=== PATIENT | female | born 1955 | race Asian ===

== ENCOUNTER 2017-10-15 05:04 | Emergency (ER) | END 2017-10-15 07:03 | disposition home or self-care (01) ==

== ENCOUNTER 2017-10-18 08:45 | Emergency (ER) | END 2017-10-18 11:24 | disposition home or self-care (01) ==

== ENCOUNTER 2017-11-01 20:16 | Emergency (ER) | END 2017-11-01 23:40 | disposition home or self-care (01) ==

== ENCOUNTER 2017-12-07 22:10 | Emergency (ER) | END 2017-12-08 01:52 | disposition left against medical advice (07) ==

== ENCOUNTER 2017-12-14 17:12 | Emergency (ER) | END 2017-12-14 20:10 | disposition home or self-care (01) ==

== ENCOUNTER 2018-09-30 15:09 | Emergency (ER) | payer MEDICAID ==
[~2018-09-30] VITALS: Wt 78.4 kg
[~2018-09-30 15:09] MED LIST: BEN25 PO; BEN50 PO; CEPH-443 PO; FAMO-96 PO; FEXO180T61 PO; HC30CR25 TOP; PRED20TA PO; TRIA15CR55 TOP
[2018-09-30 15:17] VITALS: BP 150/71; PULSE 71; RESP 19
[2018-09-30] MEDS ORDERED: LORA-441 PO (16:03)
--- NOTE | 2018-09-30 18:30 | ERD ---
ER Documentation Chief Complaint Chief Complaint bib self, cc: headache, here for lorazapam rx refill, hx of anxiety HPI 63-year-old female presents for palpitation and headache times 1 day. Patient does have history of anxiety and atrial fibrillation for which she takes ativan and metoprolol. She was able to take her medications last night with relief of symptoms. Patient states that she currently out of the Ativan and would like a refill. No other complaints. ROS All systems reviewed and are negative except as per history of present illness. Medications Home Meds Active Scripts Lorazepam* (Ativan*) 0.5 Mg Tablet, 0.5 MG PO Q8H PRN for ANXIETY, #10 TAB Prov:TAVON CAMPOS DO 09/30/18 Triamcinolone Acetonide (Triamcinolone Acetonide) 0.1% - 15 Gm Cream.gm., 1 APPLIC TOP QID for 10 Days, #1 TUB 60 g okay Prov:ASHWIN GUILLAUME MD 12/14/17 Prednisone* (Prednisone*) 20 Mg Tab, 40 MG PO DAILY for 5 Days, TAB Prov:ASHWIN GUILLAUME MD 12/14/17 Fexofenadine Hcl* (Fay*) 180 Mg Tablet, 180 MG PO DAILY, #30 TAB Prov:ASHWIN GUILLAUME MD 12/14/17 Famotidine* (Pepcid*) 20 Mg Tablet, 20 MG PO BID for 4 Days, #20 TAB Prov:LAINE TOLLIVER PA-C 11/01/17 Hydrocortisone* Topical (Hydrocortisone* Topical) 2.5%-28.3 Gm Cream..g., 1 APPLIC TOP BID for 7 Days, #1 TUB Prov:LAINE TOLLIVER PA-C 11/01/17 Diphenhydramine Hcl* (Benadryl*) 50 Mg Cap, 50 MG PO Q6H PRN for ITCHING/RASH, #30 CAP Prov:LAINE TOLLIVER PA-C 11/01/17 Prednisone* (Prednisone*) 20 Mg Tab, 40 MG PO DAILY for 4 Days, TAB Prov:LAINE TOLLIVER PA-C 11/01/17 Prednisone* (Prednisone*) 20 Mg Tab, 40 MG PO DAILY for 4 Days, TAB Prov:LAINE TOLLIVER PA-C 11/01/17 Cephalexin* (Keflex*) 500 Mg Capsule, 500 MG PO QID for 7 Days, CAP Prov:MARICRUZ HEREDIA PA-C 10/18/17 Hydrocortisone* Topical (Hydrocortisone* Topical) 2.5%-28.3 Gm Cream..g., 1 APPLIC TOP BID, #1 TUB Prov:MARICRUZ HEREDIA PA-C 10/18/17 Diphenhydramine Hcl* (Benadryl*) 50 Mg Cap, 50 MG PO Q6 PRN for ITCHING, #30 CAP Prov:MARICRUZ HEREDIA PA-C 10/18/17 Famotidine* (Pepcid*) 20 Mg Tablet, 20 MG PO BID for 4 Days, TAB Prov:MARICRUZ HEREDIA PA-C 10/18/17 Famotidine* (Pepcid*) 20 Mg Tablet, 20 MG PO BID for 7 Days, TAB Prov:LUNA العلي PA-C 10/15/17 Prednisone* (Prednisone*) 20 Mg Tab, 40 MG PO DAILY for 4 Days, TAB Prov:LUNA العلي PA-C 10/15/17 Diphenhydramine Hcl* (Benadryl*) 25 Mg Cap, 25 MG PO Q6, #30 CAP Prov:LUNA العلي PA-C 10/15/17 Allergies Allergies: Coded Allergies: Sulfa (Sulfonamide Antibiotics) (Verified Allergy, Severe, rash, 10/18/17) iodine (Verified Allergy, Severe, rash, 10/18/17) PMhx/Soc History of Surgery: No Anesthesia Reaction: No Hx Neurological Disorder: No Hx Respiratory Disorders: No Hx Cardiac Disorders: Yes (HTN, HLD) Hx Psychiatric Problems: Yes (anxiety) Hx Miscellaneous Medical Probl: Yes (Thyroid) Hx Alcohol Use: No Hx Substance Use: No Hx Tobacco Use: Yes Smoking Status: Never smoker Physical Exam Vitals Vital Signs Date Temp Pulse Resp B/P (MAP) Pulse Ox O2 O2 Flow FiO2 Time Delivery Rate 09/30/18 98.1 71 19 150/71 100 15:17 (97) Physical Exam Const: No acute distress Head: Atraumatic Eyes: Normal Conjunctiva ENT: Normal External Ears, Nose and Mouth. Neck: Full range of motion. No meningismus. Resp: Clear to auscultation bilaterally Cardio: Irregular rate, no murmurs Abd: Soft, non tender, non distended. Normal bowel sounds Skin: No petechiae or rashes Back: No midline or flank tenderness Ext: No cyanosis, or edema Neur: Awake and alert Psych: Normal Mood and Affect Procedures/MDM Medical Decision Making: Differential diagnosis includes but not limited to arrhythmia, anxiety, electrolyte disorder Patient appeared well on physical exam. Vital signs reviewed by me showed normal pulse with mildly elevated blood pressure The heart rate was irregular given patient's history of atrial fibrillation. However the heart rate was controlled. There is possible the palpitations from arrhythmia possibly due to the patient's age fibrillation. There is also possibility that the patient may have had anxiety attack. Prescription(s): Patient given prescription for Ativan low-dose short course. Patient advised that she would need to follow with cardiology. Patient advised to follow up with PCP in 1-2 days. Patient advised to return to ED for new or worsening symptoms. Patient stable on discharge from the ED. Disclaimer: Inadvertent spelling and grammatical errors are likely due to EHR/dictation software use and do not reflect on the overall quality of patient care. Also, please note that the electronic time recorded on this note does not necessarily reflect the actual time of the patient encounter. Departure Diagnosis: Primary Impression: Palpitation Additional Impression: Anxiety Condition: Fair Patient Instructions: Your Body's Response to Anxiety, Palpitations Referrals: [facility], [facility] YOU HAVE RECEIVED A MEDICAL SCREENING EXAM AND THE RESULTS INDICATE THAT YOU DO NOT HAVE A CONDITION THAT REQUIRES URGENT TREATMENT IN THE EMERGENCY DEPARTMENT. FURTHER EVALUATION AND TREATMENT OF YOUR CONDITION CAN WAIT UNTIL YOU ARE SEEN IN YOUR DOCTORS OFFICE WITHIN THE NEXT 1-2 DAYS. IT IS YOUR RESPONSIBILITY TO MAKE AN APPOINTMENT FOR FOLOW-UP CARE. IF YOU HAVE A PRIMARY DOCTOR --you should call your primary doctor and schedule an appointment IF YOU DO NOT HAVE A PRIMARY DOCTOR YOU CAN CALL OUR PHYSICIAN REFERRAL HOTLINE AT IF YOU CAN NOT AFFORD TO SEE A PHYSICIAN YOU CAN CHOSE FROM THE FOLLOWING [facility], [facility] [address] [facility]. [facility] [address] [facility] [address] [facility]. [facility] [address] [facility]. [facility] [address] [facility] [address] Additional Instructions: Call your primary care doctor TOMORROW for an appointment during the next 1-2 days.See the doctor sooner or return here if your condition worsens before your appointment time. TAVON CAMPOS DO Sep 30, 2018 18:30
== END 2018-09-30 16:36 | disposition home or self-care (01) ==
LOC: FTE 15:09
DX: F41.9 Anxiety disorder, unspecified (principal); I10 Essential (primary) hypertension
CPT/HCPCS: 99283

== ENCOUNTER 2018-11-02 11:39 | Emergency (ER) | payer MEDICAID ==
[~2018-11-02] VITALS: Wt 81.0 kg
[~2018-11-02 11:39] MED LIST changes: +LORA-441 PO
[2018-11-02 11:56] VITALS: BP 125/71; PULSE 67; RESP 20
[2018-11-02] MEDS ORDERED: DEXAMETHASONE 10 MG/ML 1 ML INJ IM ONE (13:30)
[2018-11-02] MEDS ORDERED: ELIM TOP (13:32)
[2018-11-02] MEDS ORDERED: PRED20TA PO (13:32)
[2018-11-02] MEDS ORDERED: HYDR-3029 PO (13:32)
--- NOTE | 2018-11-02 13:36 | ERD ---
ER Documentation Chief Complaint Chief Complaint rash on body HPI 63-year-old female presenting with rash on abdomen and hands. She states that she was told by the sewer and drain technician that her hands were eczema however she has had worsening rash noted on the abdomen and it is very itchy. She denies any tongue swelling. She is been taking Zyrtec. She states that she has been eating excessive amounts of peanuts and is concerned that she may have an allergic reaction. Denies other medical problems. NKDA. Surgical history denies. Social history denies ROS All systems reviewed and are negative except as per history of present illness. Medications Home Meds Active Scripts Permethrin* (Elimite*) 5% Cr, 1 APPLIC TOP ONCE, #1 TUB Prov:MELI MALONEY PA-C 11/02/18 Hydroxyzine Hcl* (Hydroxyzine Hcl*) 10 Mg Tablet, 10 MG PO Q6H PRN for ITCHING, #30 TAB Prov:MELI MALONEY PA-C 11/02/18 Prednisone* (Prednisone*) 20 Mg Tab, 40 MG PO DAILY for 4 Days, TAB Prov:MELI MALONEY PA-C 11/02/18 Lorazepam* (Ativan*) 0.5 Mg Tablet, 0.5 MG PO Q8H PRN for ANXIETY, #10 TAB Prov:TAVON CAMPOS DO 09/30/18 Triamcinolone Acetonide (Triamcinolone Acetonide) 0.1% - 15 Gm Cream.gm., 1 APPLIC TOP QID for 10 Days, #1 TUB 60 g okay Prov:ASHWIN GUILLAUME MD 12/14/17 Prednisone* (Prednisone*) 20 Mg Tab, 40 MG PO DAILY for 5 Days, TAB Prov:ASHWIN GUILLAUME MD 12/14/17 Fexofenadine Hcl* (Fay*) 180 Mg Tablet, 180 MG PO DAILY, #30 TAB Prov:ASHWIN GUILLAUME MD 12/14/17 Famotidine* (Pepcid*) 20 Mg Tablet, 20 MG PO BID for 4 Days, #20 TAB Prov:LAINE TOLLIVER PA-C 11/01/17 Hydrocortisone* Topical (Hydrocortisone* Topical) 2.5%-28.3 Gm Cream..g., 1 APPLIC TOP BID for 7 Days, #1 TUB Prov:LAINE TOLLIVERC 11/01/17 Diphenhydramine Hcl* (Benadryl*) 50 Mg Cap, 50 MG PO Q6H PRN for ITCHING/RASH, #30 CAP Prov:LAINE TOLLIVER-C 11/01/17 Prednisone* (Prednisone*) 20 Mg Tab, 40 MG PO DAILY for 4 Days, TAB Prov:LAINE TOLLIVER-C 11/01/17 Prednisone* (Prednisone*) 20 Mg Tab, 40 MG PO DAILY for 4 Days, TAB Prov:LAINE TOLLIVER-C 11/01/17 Cephalexin* (Keflex*) 500 Mg Capsule, 500 MG PO QID for 7 Days, CAP Prov:MARICRUZ HEREDIA PA-C 10/18/17 Hydrocortisone* Topical (Hydrocortisone* Topical) 2.5%-28.3 Gm Cream..g., 1 APPLIC TOP BID, #1 TUB Prov:MARICRUZ HEREDIA PA-C 10/18/17 Diphenhydramine Hcl* (Benadryl*) 50 Mg Cap, 50 MG PO Q6 PRN for ITCHING, #30 CAP Prov:MARICRUZ HEREDIA PA-C 10/18/17 Famotidine* (Pepcid*) 20 Mg Tablet, 20 MG PO BID for 4 Days, TAB Prov:MARICRUZ HEREDIA PA-C 10/18/17 Famotidine* (Pepcid*) 20 Mg Tablet, 20 MG PO BID for 7 Days, TAB Prov:LUNA العليC 10/15/17 Prednisone* (Prednisone*) 20 Mg Tab, 40 MG PO DAILY for 4 Days, TAB Prov:LUNA العليC 10/15/17 Diphenhydramine Hcl* (Benadryl*) 25 Mg Cap, 25 MG PO Q6, #30 CAP Prov:LUNA العليC 10/15/17 Allergies Allergies: Coded Allergies: Sulfa (Sulfonamide Antibiotics) (Verified Allergy, Severe, rash, 10/18/17) iodine (Verified Allergy, Severe, rash, 10/18/17) PMhx/Soc History of Surgery: No Anesthesia Reaction: No Hx Neurological Disorder: No Hx Respiratory Disorders: No Hx Cardiac Disorders: Yes (HTN, HLD) Hx Psychiatric Problems: Yes (anxiety) Hx Miscellaneous Medical Probl: Yes (Thyroid) Hx Alcohol Use: No Hx Substance Use: No Hx Tobacco Use: Yes Smoking Status: Current some day smoker FmHx Family History: No diabetes, No coronary disease, No other Physical Exam Vitals Vital Signs Date Temp Pulse Resp B/P (MAP) Pulse Ox O2 O2 Flow FiO2 Time Delivery Rate 11/02/18 97.7 67 20 125/71 97 11:56 (89) Physical Exam GENERAL: The patient is well-appearing, well-nourished, in no acute distress HEENT: Atraumatic. Conjunctivae are pink. Pupils equal, round, and reactive to light. There is no scleral icterus. Tympanic membranes clear bilaterally. Oropharynx clear. CHEST: Clear to auscultation bilaterally. There are no rales, wheezes or rhonchi. HEART: Regular rate and rhythm. No murmurs, clicks, rubs or gallops. SKIN: Erythematous plaques noted on abdomen hands. Small vesicles noted with no pustules. Results 24 hrs Current Medications Medications Dose Sig/Aida Start Time Status Last (Trade) Ordered Route PRN Stop Time Admin Dose Reason Admin 10 mg ONCE ONCE 11/02/18 DC Dexamethasone IM 13:30 (Decadron) 11/02/18 13:31 Procedures/MDM ER course: Decadron given in ED. MDM: 63-year-old female presenting with rash. Patient's rash appears to be eczema in nature however I will treat for possible underlying parasitic infection. I have low suspicion for bacterial infection. I have low suspicion for life-threatening rash. Patient is discharged with stricter precautions and told to follow-up with primary care. All questions answered at discharge Departure Diagnosis: Primary Impression: Rash Condition: Stable Patient Instructions: Self-Care for Skin Rashes Referrals: COMM[facility] CLINICS YOU HAVE RECEIVED A MEDICAL SCREENING EXAM AND THE RESULTS INDICATE THAT YOU DO NOT HAVE A CONDITION THAT REQUIRES URGENT TREATMENT IN THE EMERGENCY DEPARTMENT. FURTHER EVALUATION AND TREATMENT OF YOUR CONDITION CAN WAIT UNTIL YOU ARE SEEN IN YOUR DOCTORS OFFICE WITHIN THE NEXT 1-2 DAYS. IT IS YOUR RESPONSIBILITY TO MAKE AN APPOINTMENT FOR FOLOW-UP CARE. IF YOU HAVE A PRIMARY DOCTOR --you should call your primary doctor and schedule an appointment IF YOU DO NOT HAVE A PRIMARY DOCTOR YOU CAN CALL OUR PHYSICIAN REFERRAL HOTLINE AT IF YOU CAN NOT AFFORD TO SEE A PHYSICIAN YOU CAN CHOSE FROM THE FOLLOWING [facility] [address] [facility]. [facility] [address] [facility] [address] [facility] [address] [facility] [facility] [address] [facility]. [facility] [address] Additional Instructions: FOLLOW UP WITH YOUR PRIMARY CARE PHYSICIAN TOMORROW.Return to this facility if you are not improving as expected. MELI MALONEY PA-C Nov 02, 2018 13:36
== END 2018-11-02 13:43 | disposition home or self-care (01) ==
LOC: FTE 11:39
DX: R21 Rash and other nonspecific skin eruption (principal); I10 Essential (primary) hypertension; F17.210 Nicotine dependence, cigarettes, uncomplicated
CPT/HCPCS: 96372; J1100; Z7502

== ENCOUNTER 2018-11-18 20:59 | Emergency (ER) | payer MEDICAID ==
[~2018-11-18] VITALS: Ht 161.3 cm; Wt 83.6 kg
[~2018-11-18 20:59] MED LIST changes: +ELIM TOP; +HYDR-3029 PO
[2018-11-18 21:32] VITALS: Ht 161.3 cm; Wt 83.6 kg
[2018-11-19] MEDS ORDERED: CLOB60CR2 TOP (00:46)
--- NOTE | 2018-11-19 00:50 | ERD ---
ER Documentation Chief Complaint Chief Complaint painful rash x 2 weeks, on Clobetasol cream HPI This is a 63-year-old female with a history of eczema and psoriasis who presents to the emergency room for evaluation of itching on her hands. The patient states that she was taking clobetasol at her previous emergency room visit and does have a back padder who she has not followed up with at this time. She presents to the ER for evaluation of itching. ROS All systems reviewed and are negative except as per history of present illness. Medications Home Meds Active Scripts Clobetasol Propionate* (Clobetasol Propionate*) 60 Gm Cream.gm., 1 APPLIC TOP BID, #1 TUB Prov:CARI WOLF DO 11/19/18 Permethrin* (Elimite*) 5% Cr, 1 APPLIC TOP ONCE, #1 TUB Prov:MELI MALONEY PA-C 11/02/18 Hydroxyzine Hcl* (Hydroxyzine Hcl*) 10 Mg Tablet, 10 MG PO Q6H PRN for ITCHING, #30 TAB Prov:MELI MALONEY PA-C 11/02/18 Prednisone* (Prednisone*) 20 Mg Tab, 40 MG PO DAILY for 4 Days, TAB Prov:MELI MALONEY PA-C 11/02/18 Lorazepam* (Ativan*) 0.5 Mg Tablet, 0.5 MG PO Q8H PRN for ANXIETY, #10 TAB Prov:TAVON CAMPOS DO 09/30/18 Triamcinolone Acetonide (Triamcinolone Acetonide) 0.1% - 15 Gm Cream.gm., 1 APPLIC TOP QID for 10 Days, #1 TUB 60 g okay Prov:ASHWIN GUILLAUME MD 12/14/17 Prednisone* (Prednisone*) 20 Mg Tab, 40 MG PO DAILY for 5 Days, TAB Prov:ASHWIN GUILLAUME MD 12/14/17 Fexofenadine Hcl* (Fay*) 180 Mg Tablet, 180 MG PO DAILY, #30 TAB Prov:ASHWIN GUILLAUME MD 12/14/17 Famotidine* (Pepcid*) 20 Mg Tablet, 20 MG PO BID for 4 Days, #20 TAB Prov:LAINE TOLLIVER PA-C 11/01/17 Hydrocortisone* Topical (Hydrocortisone* Topical) 2.5%-28.3 Gm Cream..g., 1 APPLIC TOP BID for 7 Days, #1 TUB Prov:LAINE TOLLIVER PA-C 11/01/17 Diphenhydramine Hcl* (Benadryl*) 50 Mg Cap, 50 MG PO Q6H PRN for ITCHING/RASH, #30 CAP Prov:LAINE TOLLIVER PA-C 11/01/17 Prednisone* (Prednisone*) 20 Mg Tab, 40 MG PO DAILY for 4 Days, TAB Prov:LAINE TOLLIVER PA-C 11/01/17 Prednisone* (Prednisone*) 20 Mg Tab, 40 MG PO DAILY for 4 Days, TAB Prov:LAINE TOLLIVER PA-C 11/01/17 Cephalexin* (Keflex*) 500 Mg Capsule, 500 MG PO QID for 7 Days, CAP Prov:MARICRUZ HEREDIA PA-C 10/18/17 Hydrocortisone* Topical (Hydrocortisone* Topical) 2.5%-28.3 Gm Cream..g., 1 APPLIC TOP BID, #1 TUB Prov:MARICRUZ HEREDIA PA-C 10/18/17 Diphenhydramine Hcl* (Benadryl*) 50 Mg Cap, 50 MG PO Q6 PRN for ITCHING, #30 CAP Prov:MARICRUZ HEREDIA PA-C 10/18/17 Famotidine* (Pepcid*) 20 Mg Tablet, 20 MG PO BID for 4 Days, TAB Prov:MARICRUZ HEREDIA PA-C 10/18/17 Famotidine* (Pepcid*) 20 Mg Tablet, 20 MG PO BID for 7 Days, TAB Prov:LUNA العليC 10/15/17 Prednisone* (Prednisone*) 20 Mg Tab, 40 MG PO DAILY for 4 Days, TAB Prov:LUNA العلي-C 10/15/17 Diphenhydramine Hcl* (Benadryl*) 25 Mg Cap, 25 MG PO Q6, #30 CAP Prov:LUNA العلي-C 10/15/17 Allergies Allergies: Coded Allergies: Sulfa (Sulfonamide Antibiotics) (Verified Allergy, Severe, rash, 10/18/17) iodine (Verified Allergy, Severe, rash, 10/18/17) PMhx/Soc History of Surgery: No Anesthesia Reaction: No Hx Neurological Disorder: No Hx Respiratory Disorders: No Hx Cardiac Disorders: Yes (HTN, HLD) Hx Psychiatric Problems: Yes (anxiety) Hx Miscellaneous Medical Probl: Yes (Thyroid) Hx Alcohol Use: No Hx Substance Use: No Hx Tobacco Use: Yes Physical Exam Vitals Vital Signs Date Temp Pulse Resp B/P (MAP) Pulse Ox O2 O2 Flow FiO2 Time Delivery Rate 11/18/18 98.3 74 18 150/77 98 21:32 (101) Physical Exam Const: No acute distress Head: Atraumatic Eyes: Normal Conjunctiva ENT: Normal External Ears, Nose and Mouth. Neck: Full range of motion. No meningismus. Resp: Clear to auscultation bilaterally Cardio: Regular rate and rhythm, no murmurs Abd: Soft, non tender, non distended. Normal bowel sounds Skin: Eczematous rash with dry skin and mild cracking. No abscess formation Back: No midline or flank tenderness Ext: No cyanosis, or edema Neur: Awake and alert Psych: Normal Mood and Affect Results 24 hrs Current Medications Medications Dose Sig/Aida Start Time Status Last (Trade) Ordered Route PRN Stop Time Admin Dose Reason Admin 25 mg ONCE ONCE 11/19/18 Diphenhydrami PO 01:00 ne HCl 11/19/18 01:01 (Benadryl) 10 mg ONCE ONCE 11/19/18 Dexamethasone IV 01:00 (Decadron) 11/19/18 01:01 Procedures/MDM This 63-year-old female presents to the emergency room for evaluation of a rash. The patient does have a history of eczema and possible psoriasis. She is here because she is having itching. She was put on prednisone previously and states that she does not like prednisone. The patient was given Decadron in the emergency room. She was given Benadryl. She will be discharged home with clobetasol cream Departure Diagnosis: Primary Impression: Eczema Additional Impression: Dermatitis Condition: Fair Patient Instructions: Dermatitis, Non-Specific Referrals: [facility] YOU HAVE RECEIVED A MEDICAL SCREENING EXAM AND THE RESULTS INDICATE THAT YOU DO NOT HAVE A CONDITION THAT REQUIRES URGENT TREATMENT IN THE EMERGENCY DEPARTMENT. FURTHER EVALUATION AND TREATMENT OF YOUR CONDITION CAN WAIT UNTIL YOU ARE SEEN IN YOUR DOCTORS OFFICE WITHIN THE NEXT 1-2 DAYS. IT IS YOUR RESPONSIBILITY TO MAKE AN APPOINTMENT FOR FOLOW-UP CARE. IF YOU HAVE A PRIMARY DOCTOR --you should call your primary doctor and schedule an appointment IF YOU DO NOT HAVE A PRIMARY DOCTOR YOU CAN CALL OUR PHYSICIAN REFERRAL HOTLINE AT IF YOU CAN NOT AFFORD TO SEE A PHYSICIAN YOU CAN CHOSE FROM THE FOLLOWING [facility] [address] [facility] [address] [facility] [address] [facility] [address] [facility]. [facility] [address] [facility]. [facility]. [address] Additional Instructions: Call your primary care doctor TOMORROW for an appointment during the next 1-2 days.See the doctor sooner or return here if your condition worsens before your appointment time. CARI WOLF DO Nov 19, 2018 00:50
[2018-11-19] MEDS ORDERED: DIPHENHYDRAMINE 25 MG CAP PO ONE (01:00)
[2018-11-19] MEDS ORDERED: DEXAMETHASONE 10 MG/ML 1 ML INJ IV ONE (01:00)
[2018-11-19 01:20] VITALS: BP 134/80; PULSE 75; RESP 18
[2018-11-19] MEDS ORDERED: DEXAMETHASONE 10 MG/ML 1 ML INJ IM ONE (01:30)
== END 2018-11-19 01:21 | disposition home or self-care (01) ==
LOC: E/R 20:59
DX: L30.9 Dermatitis, unspecified (principal); I10 Essential (primary) hypertension
CPT/HCPCS: 96372; J1100; Z7502; Z7610

== ENCOUNTER 2018-11-23 16:23 | Emergency (ER) | payer MEDICAID ==
[~2018-11-23] VITALS: Ht 170.2 cm; Wt 83.0 kg
[~2018-11-23 16:23] MED LIST changes: +CLOB60CR2 TOP
[2018-11-23 16:43] VITALS: Ht 170.2 cm; Wt 83.0 kg
--- NOTE | 2018-11-23 20:58 | ERD ---
ER Documentation Chief Complaint Chief Complaint GENERALIZED RED RAISED CRACKLED SKIN, HX OF ECXEMA HPI 63-year-old female with a history of eczema, presents to the emergency department, complaining of acute exacerbation of the symptoms, the patient is requesting a shot of steroids, she also reports worsening of anxiety due to generalized pruritus and is requesting some medication to help. Otherwise, no fever, no chills. ROS All systems reviewed and are negative except as per history of present illness. Medications Home Meds Active Scripts Hydroxyzine Hcl* (Hydroxyzine Hcl*) 25 Mg Tablet, 25 MG PO Q8H PRN for ITCHING, #30 TAB Prov:ADRIANNE CUTLER MD 11/23/18 Lorazepam* (Ativan*) 0.5 Mg Tablet, 0.5 MG PO Q8H PRN for ANXIETY, #10 TAB Prov:ADRIANNE CUTLER MD 11/23/18 Clobetasol Propionate* (Clobetasol Propionate*) 60 Gm Cream.gm., 1 APPLIC TOP BID, #1 TUB Prov:CARI WOLF DO 11/19/18 Permethrin* (Elimite*) 5% Cr, 1 APPLIC TOP ONCE, #1 TUB Prov:MELI MALONEY PA-C 11/02/18 Hydroxyzine Hcl* (Hydroxyzine Hcl*) 10 Mg Tablet, 10 MG PO Q6H PRN for ITCHING, #30 TAB Prov:MELI MALONEY PA-C 11/02/18 Prednisone* (Prednisone*) 20 Mg Tab, 40 MG PO DAILY for 4 Days, TAB Prov:MELI MALONEY PA-C 11/02/18 Lorazepam* (Ativan*) 0.5 Mg Tablet, 0.5 MG PO Q8H PRN for ANXIETY, #10 TAB Prov:TAVON CAMPOS DO 09/30/18 Triamcinolone Acetonide (Triamcinolone Acetonide) 0.1% - 15 Gm Cream.gm., 1 APPLIC TOP QID for 10 Days, #1 TUB 60 g okay Prov:ASHWIN GUILLAUME MD 12/14/17 Prednisone* (Prednisone*) 20 Mg Tab, 40 MG PO DAILY for 5 Days, TAB Prov:ASHWIN GUILLAUME MD 12/14/17 Fexofenadine Hcl* (Fay*) 180 Mg Tablet, 180 MG PO DAILY, #30 TAB Prov:ASHWIN GUILLAUME MD 12/14/17 Famotidine* (Pepcid*) 20 Mg Tablet, 20 MG PO BID for 4 Days, #20 TAB Prov:LAINE TOLLIVERC 11/01/17 Hydrocortisone* Topical (Hydrocortisone* Topical) 2.5%-28.3 Gm Cream..g., 1 APPLIC TOP BID for 7 Days, #1 TUB Prov:LAINE TOLLIVERC 11/01/17 Diphenhydramine Hcl* (Benadryl*) 50 Mg Cap, 50 MG PO Q6H PRN for ITCHING/RASH, #30 CAP Prov:LAINE TOLLIVERC 11/01/17 Prednisone* (Prednisone*) 20 Mg Tab, 40 MG PO DAILY for 4 Days, TAB Prov:LAINE TOLLIVERC 11/01/17 Prednisone* (Prednisone*) 20 Mg Tab, 40 MG PO DAILY for 4 Days, TAB Prov:LAINE TOLLIVERC 11/01/17 Cephalexin* (Keflex*) 500 Mg Capsule, 500 MG PO QID for 7 Days, CAP Prov:MARICRUZ HEREDIA PA-C 10/18/17 Hydrocortisone* Topical (Hydrocortisone* Topical) 2.5%-28.3 Gm Cream..g., 1 APPLIC TOP BID, #1 TUB Prov:MARICRUZ HEREDIA PA-C 10/18/17 Diphenhydramine Hcl* (Benadryl*) 50 Mg Cap, 50 MG PO Q6 PRN for ITCHING, #30 CAP Prov:MARICRUZ HEREDIA PA-C 10/18/17 Famotidine* (Pepcid*) 20 Mg Tablet, 20 MG PO BID for 4 Days, TAB Prov:MARICRUZ HEREDIA PA-C 10/18/17 Famotidine* (Pepcid*) 20 Mg Tablet, 20 MG PO BID for 7 Days, TAB Prov:LUNA العلي PA-C 10/15/17 Prednisone* (Prednisone*) 20 Mg Tab, 40 MG PO DAILY for 4 Days, TAB Prov:LUNA العلي PA-C 10/15/17 Diphenhydramine Hcl* (Benadryl*) 25 Mg Cap, 25 MG PO Q6, #30 CAP Prov:LUNA العلي PA-C 10/15/17 Allergies Allergies: Coded Allergies: Sulfa (Sulfonamide Antibiotics) (Verified Allergy, Severe, rash, 10/18/17) iodine (Verified Allergy, Severe, rash, 10/18/17) PMhx/Soc Medical and Surgical Hx: pt denies Medical Hx, pt denies Surgical Hx History of Surgery: No Anesthesia Reaction: No Hx Neurological Disorder: No Hx Respiratory Disorders: No Hx Cardiac Disorders: Yes (HTN, HLD) Hx Psychiatric Problems: Yes (anxiety) Hx Miscellaneous Medical Probl: Yes (Thyroid) Hx Alcohol Use: No Hx Substance Use: No Hx Tobacco Use: Yes Smoking Status: Light tobacco smoker Physical Exam Vitals Vital Signs Date Temp Pulse Resp B/P (MAP) Pulse Ox O2 O2 Flow FiO2 Time Delivery Rate 11/23/18 98.5 75 16 127/64 99 16:43 (85) Physical Exam Const: No acute distress Head: Atraumatic Eyes: Normal Conjunctiva ENT: Normal External Ears, Nose and Mouth. Neck: Full range of motion. No meningismus. Resp: Clear to auscultation bilaterally Cardio: Regular rate and rhythm, no murmurs Abd: Soft, non tender, non distended. Normal bowel sounds Skin: Erythematous, hyperpigmented, hyperkeratotic plaques on bilateral forearms. Back: No midline or flank tenderness Ext: No cyanosis, or edema Neur: Awake and alert Psych: Normal Mood and Affect Results 24 hrs Current Medications Medications Dose Sig/Aida Start Time Status Last (Trade) Ordered Route PRN Stop Time Admin Dose Reason Admin 125 mg ONCE ONCE 11/23/18 DC 11/23/18 Methylprednis IM 21:30 21:28 olone Sodium 11/23/18 21:31 Succinate (Solu-Medrol) Lorazepam 1 mg ONCE ONCE 11/23/18 DC (Ativan) PO 21:30 11/23/18 21:31 Procedures/MDM Differential diagnosis include but not limited to: Viral exanthema, seborrheic dermatitis, scabies, acute allergic reaction, medication side effect. low suspicion for systemic infectious process, angioedema, anaphylactic shock. Physical examination and clinical presentation consistent most likely with eczema. Results and clinical impression discussed with the parents who agree with management. The patient is stable to be treated outpatient and will be discharged home. Some side effects of prescribed medications (skin atrophy, nausea, vomiting, diarrhea, interactions with other medications) were reviewed. The patient was instructed to follow up with the primary care provider in the next 48h. If symptoms persist, worsen or new symptoms develop, then patient should return to the ED immediately. Instructions explained and given directly by me with acknowledgment and demonstrated understanding. Disclaimer: Inadvertent spelling and grammatical errors are likely due to EHR/dictation software use and do not reflect on the overall quality of patient care. Also, please note that the electronic time recorded on this note does not necessarily reflect the actual time of the patient encounter. Departure Diagnosis: Primary Impression: Chronic eczema Condition: Stable Additional Instructions: Thank you very much for allowing us to participate in your care. Your health and safety is our top priority at [facility]. Call your primary care doctor TOMORROW for an appointment during the next 2-4 days and bring all the information and medications prescribed. Have prescriptions filled and follow precisely the directions on the label. If the symptoms get worse and your provider is unavailable, return to the Emergency Department immediately. ADRIANNE CUTLER MD Nov 23, 2018 20:58
[2018-11-23] MEDS ORDERED: METHYLPREDNISOLONE 125 MG INJ IM ONE (21:30)
[2018-11-23] MEDS ORDERED: LORAZEPAM 1 MG TAB PO ONE (21:30)
[2018-11-23] MEDS ORDERED: LORA-441 PO (21:42)
[2018-11-23] MEDS ORDERED: HYDR-843 PO (21:42)
[2018-11-23 21:53] VITALS: BP 121/74; PULSE 63; RESP 18
== END 2018-11-23 21:54 | disposition home or self-care (01) ==
LOC: FTE 16:23
DX: L30.9 Dermatitis, unspecified (principal); I10 Essential (primary) hypertension; F17.210 Nicotine dependence, cigarettes, uncomplicated
CPT/HCPCS: 96372; J2930; Z7502

== ENCOUNTER 2019-02-17 09:08 | Emergency (ER) | payer MEDICAID ==
[~2019-02-17] VITALS: Ht 157.5 cm; Wt 85.0 kg
[~2019-02-17 09:08] MED LIST changes: +HYDR-843 PO
[2019-02-17 09:09] VITALS: BP 152/72; PULSE 73; RESP 19; Ht 157.5 cm; Wt 85.0 kg
--- NOTE | 2019-02-17 09:54 | ERD ---
ER Documentation Chief Complaint Chief Complaint rashes HPI Patient is a 63 years old female with PMHx of Eczema presenting to the clinic for refills. Patient states that she has run out of Clobetasol and Hydroxizine and is requesting refills before her Ezcema worsens. Patient denies all ROS minus pruritic rash on bilateral upper extremities. ROS All systems reviewed and are negative except as per history of present illness. Medications Home Meds Active Scripts Hydroxyzine Hcl* (Hydroxyzine Hcl*) 25 Mg Tablet, 25 MG PO QID, #40 TAB Prov:GLYNN ELLIOTT PA-C 02/17/19 Hydroxyzine Hcl* (Hydroxyzine Hcl*) 10 Mg Tablet, 10 MG PO TID, #30 TAB Prov:GLYNN ELLIOTT PA-C 02/17/19 Clobetasol Propionate* (Clobetasol Propionate*) 60 Gm Cream.gm., 1 APPLIC TOP BID, #2 TUB Prov:GLYNN ELLIOTT PA-C 02/17/19 Hydroxyzine Hcl* (Hydroxyzine Hcl*) 25 Mg Tablet, 25 MG PO Q8H PRN for ITCHING, #30 TAB Prov:ADRIANNE CUTLER MD 11/23/18 Lorazepam* (Ativan*) 0.5 Mg Tablet, 0.5 MG PO Q8H PRN for ANXIETY, #10 TAB Prov:ADRIANNE CUTLER MD 11/23/18 Clobetasol Propionate* (Clobetasol Propionate*) 60 Gm Cream.gm., 1 APPLIC TOP BID, #1 TUB Prov:CARI WOLF DO 11/19/18 Permethrin* (Elimite*) 5% Cr, 1 APPLIC TOP ONCE, #1 TUB Prov:MELI MALONEY PA-C 11/02/18 Hydroxyzine Hcl* (Hydroxyzine Hcl*) 10 Mg Tablet, 10 MG PO Q6H PRN for ITCHING, #30 TAB Prov:MELI MALONEY PA-C 11/02/18 Prednisone* (Prednisone*) 20 Mg Tab, 40 MG PO DAILY for 4 Days, TAB Prov:MELI MALONEY PA-C 11/02/18 Lorazepam* (Ativan*) 0.5 Mg Tablet, 0.5 MG PO Q8H PRN for ANXIETY, #10 TAB Prov:TAVON CAMPOS DO 09/30/18 Triamcinolone Acetonide (Triamcinolone Acetonide) 0.1% - 15 Gm Cream.gm., 1 APPLIC TOP QID for 10 Days, #1 TUB 60 g okay Prov:ASHWIN GUILLAUME MD 12/14/17 Prednisone* (Prednisone*) 20 Mg Tab, 40 MG PO DAILY for 5 Days, TAB Prov:ASHWIN GUILLAUME MD 12/14/17 Fexofenadine Hcl* (Fay*) 180 Mg Tablet, 180 MG PO DAILY, #30 TAB Prov:ASHWIN GUILLAUME MD 12/14/17 Famotidine* (Pepcid*) 20 Mg Tablet, 20 MG PO BID for 4 Days, #20 TAB Prov:LAINE TOLLIVER PA-C 11/01/17 Hydrocortisone* Topical (Hydrocortisone* Topical) 2.5%-28.3 Gm Cream..g., 1 APPLIC TOP BID for 7 Days, #1 TUB Prov:LAINE TOLLIVER PA-C 11/01/17 Diphenhydramine Hcl* (Benadryl*) 50 Mg Cap, 50 MG PO Q6H PRN for ITCHING/RASH, #30 CAP Prov:LAINE TOLLIVER PA-C 11/01/17 Prednisone* (Prednisone*) 20 Mg Tab, 40 MG PO DAILY for 4 Days, TAB Prov:LAINE TOLLIVER PA-C 11/01/17 Prednisone* (Prednisone*) 20 Mg Tab, 40 MG PO DAILY for 4 Days, TAB Prov:LAINE TOLLIVERC 11/01/17 Cephalexin* (Keflex*) 500 Mg Capsule, 500 MG PO QID for 7 Days, CAP Prov:MARICRUZ HEREDIA PA-C 10/18/17 Hydrocortisone* Topical (Hydrocortisone* Topical) 2.5%-28.3 Gm Cream..g., 1 APPLIC TOP BID, #1 TUB Prov:MARICRUZ HEREDIA PA-C 10/18/17 Diphenhydramine Hcl* (Benadryl*) 50 Mg Cap, 50 MG PO Q6 PRN for ITCHING, #30 CAP Prov:MARICRUZ HEREDIA PA-C 10/18/17 Famotidine* (Pepcid*) 20 Mg Tablet, 20 MG PO BID for 4 Days, TAB Prov:MARICRUZ HEREDIA PA-C 10/18/17 Famotidine* (Pepcid*) 20 Mg Tablet, 20 MG PO BID for 7 Days, TAB Prov:LUNA العلي PA-C 10/15/17 Prednisone* (Prednisone*) 20 Mg Tab, 40 MG PO DAILY for 4 Days, TAB Prov:LUNA العلي PA-C 10/15/17 Diphenhydramine Hcl* (Benadryl*) 25 Mg Cap, 25 MG PO Q6, #30 CAP Prov:LUNA العلي PA-C 10/15/17 Allergies Allergies: Coded Allergies: Sulfa (Sulfonamide Antibiotics) (Verified Allergy, Severe, rash, 10/18/17) iodine (Verified Allergy, Severe, rash, 10/18/17) dexamethasone (Verified Allergy, Unknown, rashes, 02/17/19) latex (Verified Allergy, Unknown, rashes, 02/17/19) PMhx/Soc Ezcema Medical and Surgical Hx: pt denies Surgical Hx History of Surgery: No Anesthesia Reaction: No Hx Neurological Disorder: No Hx Respiratory Disorders: No Hx Cardiac Disorders: Yes (HTN, HLD) Hx Psychiatric Problems: Yes (anxiety) Hx Miscellaneous Medical Probl: Yes (Thyroid,skin eczema) Hx Alcohol Use: No Hx Substance Use: No Hx Tobacco Use: Yes Smoking Status: Current every day smoker Physical Exam Vitals Vital Signs Date Temp Pulse Resp B/P (MAP) Pulse Ox O2 O2 Flow FiO2 Time Delivery Rate 02/17/19 98.3 73 19 152/72 100 09:09 (98) Physical Exam Const: No acute distress Head: Atraumatic Resp: Clear to auscultation bilaterally Cardio: Regular rate and rhythm, no murmurs Skin: Eczematous rash on bilateral upper extremities with mild excoriation (from scratching). No blisters, no scales, no induration, no erythema noted. Neur: Awake and alert Psych: Normal Mood and Affect Procedures/MDM Patient was seen and evaluated for eczema. No obvious signs of cellulitis, rash, viral exanthem. Patient stable ready for discharge. Patient was advised to follow-up with PCP for refills. Provider accidentally gave hydroxizine 10mg. Provider switched to 25mg. Departure Diagnosis: Primary Impression: Eczema Eczema type: flexural Qualified Codes: L20.82 - Flexural eczema Condition: Stable Patient Instructions: Atopic Dermatitis (Eczema) Referrals: [facility] Additional Instructions: Patient advised to return to the ED immediately for new or worsening symptoms. Patient advised to follow up with primary care provider in the next 24-48 hours. Patient verbalized understanding and agrees with treatment plan and course of action. If patient has no primary care they may follow up with [facility] + [facility] [address] [place] [id number] or [facility] [address] [place] [address] or [facility] [place] [address] [place] [address] GLYNN ELLIOTT PA-C Feb 17, 2019 09:53
[2019-02-17] MEDS ORDERED: CLOB60CR2 TOP (09:56)
[2019-02-17] MEDS ORDERED: HYDR-3029 PO (09:56)
[2019-02-17] MEDS ORDERED: HYDR-843 PO (10:08)
== END 2019-02-17 10:05 | disposition home or self-care (01) ==
LOC: FTE 09:08
DX: L20.82 Flexural eczema (principal); Z91.040 Latex allergy status
CPT/HCPCS: 99281

== ENCOUNTER 2019-02-28 11:42 | Emergency (ER) | payer MEDICAID ==
[~2019-02-28] VITALS: Ht 154.9 cm; Wt 85.8 kg
[2019-02-28 12:15] VITALS: BP 149/83; PULSE 76; RESP 18; Ht 154.9 cm; Wt 85.8 kg
[2019-02-28] MEDS ORDERED: METHYLPREDNISOLONE 125 MG INJ IM ONE (13:30)
[2019-02-28] MEDS ORDERED: CLOB15OI15 TOP (14:13)
[2019-02-28] MEDS ORDERED: HYDR-842 PO (14:26)
--- NOTE | 2019-02-28 18:35 | ERD ---
ER Documentation Chief Complaint Chief Complaint b/l hand rash , itching HPI 63-year-old female with past medical history of hypertension, high cholesterol, eczema presenting to her hands complaining of "eczema flare". Symptoms began 2 days ago and are constant. She reports associated pruritus. She denies any fev ers, chills, shortness of breath, feelings of her throat closing, or other symptoms currently. ROS All systems reviewed and are negative except as per history of present illness. Medications Home Meds Active Scripts Hydroxyzine Hcl* (Atarax*) 25 Mg Tab, 25 MG PO Q6H PRN for ITCHING, #30 TAB Prov:MONICA BRAY PA-C 02/28/19 Clobetasol Propionate* (Clobetasol Propionate*) 15 Gm Oint, 1 APPLIC TOP BID, #1 TUB Prov:MONICA BRAY PA-C 02/28/19 Hydroxyzine Hcl* (Hydroxyzine Hcl*) 25 Mg Tablet, 25 MG PO QID, #40 TAB Prov:GLYNN ELLIOTT PA-C 02/17/19 Hydroxyzine Hcl* (Hydroxyzine Hcl*) 10 Mg Tablet, 10 MG PO TID, #30 TAB Prov:GLYNN ELLIOTT PA-C 02/17/19 Clobetasol Propionate* (Clobetasol Propionate*) 60 Gm Cream.gm., 1 APPLIC TOP BID, #2 TUB Prov:GLYNN ELLIOTT PA-C 02/17/19 Hydroxyzine Hcl* (Hydroxyzine Hcl*) 25 Mg Tablet, 25 MG PO Q8H PRN for ITCHING, #30 TAB Prov:ADRIANNE CUTLER MD 11/23/18 Lorazepam* (Ativan*) 0.5 Mg Tablet, 0.5 MG PO Q8H PRN for ANXIETY, #10 TAB Prov:ADRIANNE CUTLER MD 11/23/18 Clobetasol Propionate* (Clobetasol Propionate*) 60 Gm Cream.gm., 1 APPLIC TOP BID, #1 TUB Prov:CARI WOLF DO 11/19/18 Permethrin* (Elimite*) 5% Cr, 1 APPLIC TOP ONCE, #1 TUB Prov:MELI MALONEY PA-C 11/02/18 Hydroxyzine Hcl* (Hydroxyzine Hcl*) 10 Mg Tablet, 10 MG PO Q6H PRN for ITCHING, #30 TAB Prov:MELI MALONEY PA-C 11/02/18 Prednisone* (Prednisone*) 20 Mg Tab, 40 MG PO DAILY for 4 Days, TAB Prov:MELI MALONEY PA-C 11/02/18 Lorazepam* (Ativan*) 0.5 Mg Tablet, 0.5 MG PO Q8H PRN for ANXIETY, #10 TAB Prov:ANDRESTAVON 09/30/18 Triamcinolone Acetonide (Triamcinolone Acetonide) 0.1% - 15 Gm Cream.gm., 1 APPLIC TOP QID for 10 Days, #1 TUB 60 g okay Prov:ASHWIN GUILLAUME MD 12/14/17 Prednisone* (Prednisone*) 20 Mg Tab, 40 MG PO DAILY for 5 Days, TAB Prov:ASHWIN GUILLAUME MD 12/14/17 Fexofenadine Hcl* (Fay*) 180 Mg Tablet, 180 MG PO DAILY, #30 TAB Prov:ASHWIN GUILLAUME MD 12/14/17 Famotidine* (Pepcid*) 20 Mg Tablet, 20 MG PO BID for 4 Days, #20 TAB Prov:LAINE TOLLIVER PA-C 11/01/17 Hydrocortisone* Topical (Hydrocortisone* Topical) 2.5%-28.3 Gm Cream..g., 1 APPLIC TOP BID for 7 Days, #1 TUB Prov:LAINE TOLLIVER PA-C 11/01/17 Diphenhydramine Hcl* (Benadryl*) 50 Mg Cap, 50 MG PO Q6H PRN for ITCHING/RASH, #30 CAP Prov:LAINE TOLLIVER PA-C 11/01/17 Prednisone* (Prednisone*) 20 Mg Tab, 40 MG PO DAILY for 4 Days, TAB Prov:LAINE TOLLIVER PA-C 11/01/17 Prednisone* (Prednisone*) 20 Mg Tab, 40 MG PO DAILY for 4 Days, TAB Prov:LAINE TOLLIVER PA-C 11/01/17 Cephalexin* (Keflex*) 500 Mg Capsule, 500 MG PO QID for 7 Days, CAP Prov:MARICRUZ HEREDIA PA-C 10/18/17 Hydrocortisone* Topical (Hydrocortisone* Topical) 2.5%-28.3 Gm Cream..g., 1 APPLIC TOP BID, #1 TUB Prov:MARICRUZ HEREDIA PA-C 10/18/17 Diphenhydramine Hcl* (Benadryl*) 50 Mg Cap, 50 MG PO Q6 PRN for ITCHING, #30 CAP Prov:MARICRUZ HEREDIA PA-C 10/18/17 Famotidine* (Pepcid*) 20 Mg Tablet, 20 MG PO BID for 4 Days, TAB Prov:MARICRUZ HEREDIA PA-C 10/18/17 Famotidine* (Pepcid*) 20 Mg Tablet, 20 MG PO BID for 7 Days, TAB Prov:LUNA العلي PA-C 10/15/17 Prednisone* (Prednisone*) 20 Mg Tab, 40 MG PO DAILY for 4 Days, TAB Prov:LUNA العلي PA-C 10/15/17 Diphenhydramine Hcl* (Benadryl*) 25 Mg Cap, 25 MG PO Q6, #30 CAP Prov:LUNA العلي PA-C 10/15/17 Allergies Allergies: Coded Allergies: Sulfa (Sulfonamide Antibiotics) (Verified Allergy, Severe, rash, 10/18/17) iodine (Verified Allergy, Severe, rash, 10/18/17) dexamethasone (Verified Allergy, Unknown, rashes, 02/17/19) latex (Verified Allergy, Unknown, rashes, 02/17/19) PMhx/Soc History of Surgery: No Anesthesia Reaction: No Hx Neurological Disorder: No Hx Respiratory Disorders: No Hx Cardiac Disorders: Yes (HTN, HLD) Hx Psychiatric Problems: Yes (anxiety) Hx Miscellaneous Medical Probl: Yes (ECZEMA,HYPOTHYROIDISM) Hx Alcohol Use: No Hx Substance Use: No Hx Tobacco Use: Yes Smoking Status: Current every day smoker FmHx Family History: No diabetes Physical Exam Vitals Vital Signs Date Temp Pulse Resp B/P (MAP) Pulse Ox O2 O2 Flow FiO2 Time Delivery Rate 02/28/19 98.1 76 18 149/83 98 12:15 (105) Physical Exam Const: No acute distress Head: Atraumatic Eyes: Normal Conjunctiva ENT: Normal External Ears, Nose and Mouth. Neck: Full range of motion. No meningismus. Resp: Clear to auscultation bilaterally Cardio: Regular rate and rhythm, no murmurs Skin: Macular papular rash with multiple areas of excoriation and rough dry skin noted to the ventral and dorsal aspect of the hands bilaterally. Ext: No cyanosis, or edema Neur: Awake and alert Psych: Normal Mood and Affect Results 24 hrs Current Medications Medications Dose Sig/Aida Start Time Status Last (Trade) Ordered Route PRN Stop Time Admin Dose Reason Admin 125 mg ONCE ONCE 02/28/19 DC 02/28/19 Methylprednis IM 13:30 13:51 olone Sodium 02/28/19 13:31 Succinate (Solu-Medrol) Procedures/MDM 63-year-old female presents with signs and symptoms most consistent with eczema flare to her hands bilaterally. She was administered Solu-Medrol in the department with good response. She was otherwise stable for discharge and further outpatient follow-up with primary care physician and human resources designate. She will be given prescription for clobetasol and Atarax. She is advised to return to the department immediately for any new or worsening or concerning symptoms. She understands and agrees with plan. Patient's blood pressure was elevated (>120/80) but appears stable without evidence of hypertension emergency or urgency. The patient is to follow-up and pursue outpatient monitoring and therapy with their primary care physician within 1 week and return immediately if they have any new, worsening, or concerning symptoms. Departure Diagnosis: Primary Impression: Rash and other nonspecific skin eruption Condition: Fair Patient Instructions: Self-Care for Skin Rashes Referrals: [facility] YOU HAVE RECEIVED A MEDICAL SCREENING EXAM AND THE RESULTS INDICATE THAT YOU DO NOT HAVE A CONDITION THAT REQUIRES URGENT TREATMENT IN THE EMERGENCY DEPARTMENT. FURTHER EVALUATION AND TREATMENT OF YOUR CONDITION CAN WAIT UNTIL YOU ARE SEEN IN YOUR DOCTORS OFFICE WITHIN THE NEXT 1-2 DAYS. IT IS YOUR RESPONSIBILITY TO MAKE AN APPOINTMENT FOR FOLOW-UP CARE. IF YOU HAVE A PRIMARY DOCTOR --you should call your primary doctor and schedule an appointment IF YOU DO NOT HAVE A PRIMARY DOCTOR YOU CAN CALL OUR PHYSICIAN REFERRAL HOTLINE AT IF YOU CAN NOT AFFORD TO SEE A PHYSICIAN YOU CAN CHOSE FROM THE FOLLOWING [facility] [address] [facility]. [facility] [address] [facility] [facility] [address] [facility] [facility] [address] [facility]. [facility] [address] [facility]. [facility] [address] Additional Instructions: Call your primary care doctor TOMORROW for an appointment during the next 1-2 days.See the doctor sooner or return here if your condition worsens before your appointment time. MONICA BRAY PA-C Feb 28, 2019 18:35
== END 2019-02-28 14:28 | disposition home or self-care (01) ==
LOC: FTE 11:42
DX: R21 Rash and other nonspecific skin eruption (principal); I10 Essential (primary) hypertension; E03.9 Hypothyroidism, unspecified; F17.210 Nicotine dependence, cigarettes, uncomplicated; Z91.040 Latex allergy status
CPT/HCPCS: 96372; J2930; Z7502

== ENCOUNTER 2019-05-14 16:24 | Emergency (ER) | payer MEDICAID ==
[~2019-05-14] VITALS: Ht 162.6 cm; Wt 86.5 kg
[~2019-05-14 16:24] MED LIST changes: +CLOB15OI15 TOP; +HYDR-842 PO
[2019-05-14 16:28] VITALS: BP 146/76; PULSE 66; RESP 18; Ht 162.6 cm; Wt 86.5 kg
[2019-05-14] MEDS ORDERED: METHYLPREDNISOLONE 125 MG INJ IM ONE (18:30)
== END 2019-05-14 18:55 | disposition home or self-care (01) ==
LOC: FTE 16:24
DX: L25.9 Unspecified contact dermatitis, unspecified cause (principal); I10 Essential (primary) hypertension; E03.9 Hypothyroidism, unspecified; F17.210 Nicotine dependence, cigarettes, uncomplicated; Z91.040 Latex allergy status
CPT/HCPCS: 96372; J2930; Z7502